=== PATIENT | female | born 1985 | race American Indian/Alaskan Native ===

== ENCOUNTER 2022-01-20 20:11 | Outpatient (CLI) | payer OTHER ==
--- NOTE | 2022-01-21 00:30 | Ultrasound Report ---
ULTRASOUND OBSTETRIC COMPLETE INDICATION / CLINICAL INFORMATION: BASSAM,EFW. Clinical Gestational Age (GA) in weeks, days: 37 weeks 4 days TECHNIQUE: Transabdominal. COMPARISON: None available. FINDINGS: Single live intrauterine in cephalic presentation with heart rate of 133 bpm. m easurements correspond to a gestational age of 35 weeks and 1 day. Estimated weight is 2534 g. Amniotic fluid index measures 5.8 cm, which is decreased. IMPRESSION: 1. Diminished amniotic fluid index measuring 5.87 m. 2. Single live uterine with ultrasound age of 35 weeks and 1 day. Estimated weight of 2534 g. 3. No other significant abnormality. Signer Name: David Burton MD Signed: 01/21/2022 12:26 AM Workstation Name: [id number]
[2022-01-21 01:09] LABS: Basophils # (Auto) 0.1 K/mm3 (0.0-0.1); Basophils % (Auto) 0.9 % (0.0-1.8); Eosinophils # (Auto) 0.3 K/mm3 (0.0-0.4); Eosinophils % (Auto) 2.6 % (0.0-4.3); Hematocrit 34.1 % (30.3-42.9); Lymphocytes # (Auto) 2.8 K/mm3 (1.2-5.4); Lymphocytes % (Auto) 23.4 % (13.4-35.0); Mean Corpuscular HGB Conc 32 % (30-34); Mean Corpuscular Volume 84 fl (79-97); Monocytes % (Auto) 8.7 % (0.0-7.3); Platelet Count 200 K/mm3 (140-440); Red Blood Count 4.08 M/mm3 (3.65-5.03); Red Cell Distribution Width 14.7 % (13.2-15.2)
[2022-01-21] MEDS ORDERED: fentaNYL 100 MCG/2 ML INJ IV ONE (01:45)
[2022-01-21] MEDS ORDERED: LACTATED RINGERS 1,000 ML IV SCH (02:00)
--- NOTE | 2022-01-21 08:48 | Ultrasound Report ---
. ULTRASOUND OBSTETRIC LIMITED INDICATION / CLINICAL INFORMATION: Borderline oligohydramnios (BASSAM= 5.8 cm yesterday). TECHNIQUE: Transabdominal ultrasound imaging. COMPARISON: Yesterday FINDINGS: HEART RATE (beats per minute): 133 AMNIOTIC FLUID INDEX (cm) = 9.3 as opposed to 5.8 on yesterday's exam PRESENTATION: Cephalic. ADDITIONAL FINDINGS: None. IMPRESSION: No significant abnormality. No oligohydramnios on today's exam. BASSAM measures 9.3 cm. Signer Name: Alex Nguyen Jr, MD Signed: 01/21/2022 8:43 AM Workstation Name: [id number]
--- NOTE | 2022-01-21 08:48 | Ultrasound Report ---
ULTRASOUND OB VELOCIMETRY UMBILICAL ARTERY HISTORY: Intrauterine growth restriction TECHNIQUE: Transabdominal ultrasound with color and spectral Doppler imaging COMPARISON: None FINDINGS: 3 segments of the umbilical cord were evaluated. heart rate measures 133 bpm. The spectral wave forms are normal and persistent. Average S/D ratio measures: 2.52 Average resistive index measures: 0.60 Signer Name: Alex Nguyen Jr, MD Signed: 01/21/2022 8:44 AM Workstation Name: [id number]
[2022-01-21 09:27] VITALS: BP 116/61
== END 2022-01-21 10:11 | disposition home or self-care (01) ==
LOC: TRG 20:11 → APU 20:13 → LD 01-21 07:42 → TRG 01-21 10:11
PROVIDERS: ATTEND Obstetrics & Gynecology Gynecology
DX: O62.9 Abnormality of forces of labor, unspecified (principal); O36.5930 Maternal care for other known or suspected poor fetal growth, third trimester, not applicable or unspecified; O26.893 Other specified pregnancy related conditions, third trimester; M54.9 Dorsalgia, unspecified; M79.606 Pain in leg, unspecified; O99.513 Diseases of the respiratory system complicating pregnancy, third trimester; J45.909 Unspecified asthma, uncomplicated; Z3A.37 37 weeks gestation of pregnancy; Z87.891 Personal history of nicotine dependence
CPT/HCPCS: 36415; 76815; 76816; 76820; 84112; 85025; 86592; 86850; 86900; 86901; 96361; 96374; J3010; J7120

== ENCOUNTER 2022-02-02 07:17 | Inpatient (IN) | payer OTHER ==
[2022-01-28 14:12] LABS: Mean Corpuscular HGB Conc 34 % (30-34); Mean Corpuscular Volume 81 fl (79-97); Platelet Count 216 K/mm3 (140-440); Red Blood Count 4.31 M/mm3 (3.65-5.03); Red Cell Distribution Width 14.9 % (13.2-15.2)
[2022-02-03] MEDS ORDERED: ACETAMINOPHEN 325 MG TAB PO PRN ×2 (17:56→23:04)
[2022-02-03] MEDS ORDERED: fentaNYL 100 MCG/2 ML INJ IV PRN (17:56)
[2022-02-03] MEDS ORDERED: BICITRA ORAL LIQD 30ML PO ONE ×2 (17:59→18:36)
[2022-02-03] MEDS ORDERED: FAMOTIDINE 20 MG/2 ML INJ IV ONE ×2 (17:59→18:36)
[2022-02-03] MEDS ORDERED: METOCLOPRAMIDE 10 MG/2 ML INJ IV ONE ×2 (17:59→18:36)
[2022-02-03] MEDS ORDERED: LACTATED RINGERS 1,000 ML IV SCH ×3 (18:00→18:45)
[2022-02-03] MEDS ORDERED: OXYTOCIN DRIP 30 UNITS/500 ML BAG IV SCH ×2 (18:00→23:45)
[2022-02-03] MEDS ORDERED: BUPIVACAINE/PF (0.5%) 5 MG/1 ML 30 ML VIAL INFILTRATI ONE (19:13)
[2022-02-03] MEDS ORDERED: PHENYLEPHRINE/NS 1,000 MCG/10 ML SYRINGE (OR USE) IV ONE (19:13)
[2022-02-03] MEDS ORDERED: ePHEDrine SULFATE 50 MG/1 ML INJ ONE (19:13)
[2022-02-03] MEDS ORDERED: ONDANSETRON 4 MG/2 ML INJ ONE (19:13)
[2022-02-03] MEDS ORDERED: SODIUM CHLORIDE 0.9% 100 ML ONE (19:13)
[2022-02-03 19:18] LABS: Basophils # (Auto) 0.1 K/mm3 (0.0-0.1); Basophils % (Auto) 0.7 % (0.0-1.8); Eosinophils # (Auto) 0.1 K/mm3 (0.0-0.4); Eosinophils % (Auto) 1.2 % (0.0-4.3); Hematocrit 36.9 % (30.3-42.9); Hemoglobin 12.3 gm/dl (10.1-14.3); Lymphocytes # (Auto) 2.2 K/mm3 (1.2-5.4); Lymphocytes % (Auto) 22.8 % (13.4-35.0); Mean Corpuscular HGB Conc 33 % (30-34); Mean Corpuscular Volume 82 fl (79-97); Monocytes # (Auto) 0.8 K/mm3 (0.0-0.8); Monocytes % (Auto) 8.6 % (0.0-7.3); Platelet Count 209 K/mm3 (140-440); Red Blood Count 4.48 M/mm3 (3.65-5.03); Red Cell Distribution Width 14.9 % (13.2-15.2)
--- NOTE | 2022-02-03 19:31 | History and Physical Report ---
History of Present Illness Date of examination: 02/03/22 Date of admission: 02/03/22 17:31 Chief complaint: History of section x2 presents to [facility] for repeat section. History of present illness: CC: History of section x2 HPI: 36 yo at 39.4 wga here for repeat cesearean section; history of Multiple sclerosus diagnosed in 2018; Asthma which is mild intermittent; advanced maternal age; history of section x 2 . Late care at [facility] and non compliant with provider recommendations for high risk management, Neurology consultation. Patient also found to be positive for marijuana use. 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 History: other (ASCUS HPV positive 2021) Family/Genetic History: none, anesthesia problems Social history: no significant social history, smoking (Marijuana postitive screen), full code - Obstetrical History Expected Date of Delivery: 02/06/22 Actual Gestation: 39 Week(s) 5 Day(s) : 8 Para: 2 Hx # Term Pregnancies: 2 Number of Pregnancies: 0 Spontaneous Abortions: 2 Induced : 3 Number of Living Children: 2 Medications and Allergies Allergies Allergy/AdvReac Type Severity Reaction Status Date / Time cat dander Allergy Itching Verified 01/26/22 17:34 dog dander Allergy Itching Verified 01/26/22 17:34 Fish Containing Products Allergy Itching Verified 01/26/22 17:34 peanut Allergy Itching Verified 01/26/22 17:34 Home Medications Medication Instructions Recorded Confirmed Last Taken Type Albuterol Sulfate [Proair 2 puff IH Q4H PRN 01/26/22 01/26/22 Unknown History Respiclick] Loratadine [Allergy Relief] 10 mg PO DAILY 01/26/22 01/26/22 Unknown History Pnv No.133/Ferrous Fum/Folic [Sv 1 tab PO DAILY 01/26/22 01/26/22 Unknown History Vitamins Tablet] Active Meds: Active Medications Acetaminophen (Acetaminophen 325 Mg Tab) 650 mg PO Q4H PRN PRN Reason: Pain, Mild (1-3) Fentanyl (Fentanyl 100 Mcg/2 Ml Inj) 100 mcg IV Q2H PRN PRN Reason: Pain,Severe (7-10) LABOR PAIN Lactated Ringer's (Lactated Ringers) 1,000 mls @ 125 mls/hr IV DIRECT RICHARD Lactated Ringer's (Lactated Ringers) 1,000 mls @ 2,250 mls/hr IV PREOP RICHARD Stop: 02/04/22 18:27 Oxytocin/Sodium Chloride (Pitocin/Ns 30 Unit/500ml) 30 units in 500 mls @ 0 mls/hr IV TITR RICHARD; Protocol Lactated Ringer's (Lactated Ringers) 1,000 mls @ 2,250 mls/hr IV PREOP RICHARD Stop: 02/04/22 19:12 Review of Systems All systems: negative (Denies) Constitutional: weight loss, fever, chills, sweats, fatigue, weakness, poor appetite Eyes: deferred Ears, nose, mouth and throat: deferred Cardiovascular: chest pain, lightheadedness (Denies) Respiratory: cough with sputum, shortness of breath Breasts: normal Gastrointestinal: abdominal pain, vomiting, diarrhea (Denies) Genitourinary: deferred, vaginal bleeding (Denies), vaginal discharge, genital sores Rectal Exam: deferred Musculoskeletal: neck stiffness, muscle weakness (Denies) Neurological: parathesias (Denies), numbness, ataxia (Denies), burning pain (denies) Endocrine: cold intolerance (Denies), heat intolerance (Denies), fatigue Hematologic/Lymphatic: easy bruising (Denies) Allergic/Immunologic: urticaria (Denies), wheezing (Denies), other (Peanuts latex, ,Fish products.) - Vital Signs Vital signs: Vital Signs Temp Pulse Resp BP Pulse Ox 98 F 75 20 128/78 100 01/28/22 14:00 01/28/22 14:00 01/28/22 14:00 01/28/22 14:00 01/28/22 14:00 Temp Pulse Resp BP Pulse Ox 98.2 F 66 16 143/76 98 02/03/22 19:13 02/03/22 19:21 02/03/22 19:14 02/03/22 19:14 02/03/22 19:21 Results Result Diagrams: 02/04/22 05:52 02/04/22 05:52 Abnormal lab results 02/03/22 Range/Units 18:40 Desha % (Auto) 8.6 H (0.0-7.3) % All other labs normal. Assessment and Plan - Patient Problems (1) Advanced maternal age during in third trimester Current Visit: Yes Status: Acute (2) Asthma affecting in third trimester Current Visit: Yes Status: Acute (3) High-risk , elderly multigravida in third trimester Current Visit: Yes Status: Acute (4) History of 2 sections Current Visit: Yes Status: Acute (5) Insufficient care in third trimester Current Visit: Yes Status: Acute (6) Multiple sclerosis affecting in third trimester Current Visit: Yes Status: Acute (7) Multiple sclerosis affecting Current Visit: No Status: Acute
[2022-02-03] MEDS ORDERED: ceFAZolin/STERILE WATER 2 GM/20 ML SYRINGE IV NR (20:00)
[2022-02-03 20:20] LABS: Basophils % (Auto) 0.5 % (0.0-1.8); Eosinophils # (Auto) 0.1 K/mm3 (0.0-0.4); Eosinophils % (Auto) 1.2 % (0.0-4.3); Hematocrit 35.9 % (30.3-42.9); Lymphocytes # (Auto) 2.1 K/mm3 (1.2-5.4); Lymphocytes % (Auto) 22.7 % (13.4-35.0); Mean Corpuscular HGB Conc 33 % (30-34); Mean Corpuscular Volume 81 fl (79-97); Monocytes # (Auto) 0.8 K/mm3 (0.0-0.8); Monocytes % (Auto) 8.6 % (0.0-7.3); Platelet Count 210 K/mm3 (140-440); Red Blood Count 4.41 M/mm3 (3.65-5.03); Red Cell Distribution Width 14.9 % (13.2-15.2)
[2022-02-03] MEDS ORDERED: GLYCOPYRROLATE 0.4 MG/2 ML INJ ONE (21:56)
[2022-02-03] MEDS ORDERED: HYDROcodone/ACETAMINOPHEN 5-325 MG TAB PO PRN (23:04)
[2022-02-03] MEDS ORDERED: ONDANSETRON 4 MG/2 ML INJ IV PRN (23:04)
[2022-02-03] MEDS ORDERED: LANOLIN/ZINC/DIMETHICONE (LANSINOH) 7 GM TP PRN (23:04)
[2022-02-03] MEDS ORDERED: MORPHINE 4 MG/1 ML INJ IV PRN (23:04)
[2022-02-03] MEDS ORDERED: NALOXONE 0.4 MG/1 ML INJ IV PRN (23:04)
[2022-02-03] MEDS ORDERED: SIMETHICONE 80 MG CHEW TAB PO PRN (23:04)
[2022-02-03] MEDS ORDERED: MAGNESIUM HYDROXIDE (MOM) ORAL LIQD UDC PO PRN (23:04)
[2022-02-04] MEDS ORDERED: D5W/LACTATED RINGERS 1,000 ML IV SCH
[2022-02-04] MEDS ORDERED: PROMETHAZINE 25 MG TAB PO PRN (00:04)
[2022-02-04] MEDS ORDERED: PROMETHAZINE 25 MG RECT SUPP PR PRN (00:04)
[2022-02-04] MEDS ORDERED: NALOXONE 0.4 MG/1 ML INJ IV PRN (00:04)
[2022-02-04] MEDS ORDERED: HYDROmorphone 1 MG/1 ML INJ IV PRN ×2 (00:04)
[2022-02-04] MEDS ORDERED: ONDANSETRON 4 MG/2 ML INJ IV PRN (00:04)
[2022-02-04] MEDS ORDERED: MORPHINE 4 MG/1 ML INJ IV PRN (00:04)
[2022-02-04] MEDS ORDERED: fentaNYL-BUPIV 2 MCG/ML-0.125% 200 MCG/100 ML BAG EPIDURAL SCH (01:00)
[2022-02-04] MEDS ORDERED: MAGNESIUM SULFATE 4 GM/100 ML BAG IV ONE (01:13)
[2022-02-04] MEDS ORDERED: LACTATED RINGERS 1,000 ML ONE (01:21)
--- NOTE | 2022-02-04 01:30 | Anesthesia Consultation ---
Anesthesia Consult and Med Hx Date of service: 02/03/22 - Airway Anesthetic Teeth Evaluation: Good ROM Head & Neck: Adequate Mental/Hyoid Distance: Adequate Mallampati Class: Class II Intubation Access Assessment: Probably Good - Pulmonary Exam CTA: Yes - Cardiac Exam Cardiac Exam: RRR - Pre-Operative Health Status ASA Pre-Surgery Classification: ASA2 Proposed Anesthetic Plan: Spinal Nerve Block: Eron Tap - Pulmonary Hx Smoking: Yes (Former) Hx Asthma: Yes Hx Respiratory Symptoms: No SOB: No COPD: No Home Oxygen Therapy: No Hx Pneumonia: No Hx Sleep Apnea: No - Cardiovascular System Hx Hypertension: No Hx Coronary Artery Disease: No Hx Heart Attack/AMI: No Hx Angina: No Hx Percutaneous Transluminal Coronary Angioplasty (PTCA): No Hx Cardia Arrhythmia: No Hx Pacemaker: No Hx Internal Defibrillator: No Hx Valvular Heart Disease: No Hx Heart Murmur: Yes Hx Peripheral Vascular Disease: No - Central Nervous System Hx Neuromuscular Disorder: No Hx Seizures: No CVA: No Hx Back Pain: No Hx Psychiatric Problems: No - Gastrointestinal Hx Ulcer: No Hx Gastroesophageal Reflux Disease: No - Endocrine Hx Renal Disease: No Hx End Stage Renal Disease: No Hx Cirrhosis: No Hx Liver Disease: No Hx Insulin Dependent Diabetes: No Hx Non-Insulin Dependent Diabetes: No Hx Thyroid Disease: No Hx Hypothyroidism: No Hx Hyperthyroidism: No - Hematic Hx Anemia: No Hx Sickle Cell Disease: No - Other Systems Hx Alcohol Use: No Hx Cancer: No Hx Obesity: No
--- NOTE | 2022-02-04 01:30 | Anesthesia Day of Surgery ---
Anesthesia Day of Surgery - Day of Surgery Patient Examined: Yes Patient H&P Reviewed: Yes Patient is NPO: Yes Beta Blockers: No Cardiac Clearance: No Pulmonary Clearance: No Onofre's Test: N/A
--- NOTE | 2022-02-04 01:31 | Progress Note ---
Spinal Anesthesia Block - Spinal Anesthesia Block Start Time: 21:42 Stop Time: 21:50 Performed by:: CHI URBIE Procedure: The patient was placed in a sitting position on the OR table and monitors applied. A timeout was performed immediately prior to the start of the procedure. The patient was Prepped and draped in a sterile fashion and the skin was localized with 3 mL 1% lidocaine at L[4]-L[5] interspace. An introducer was placed into the back between L4-L5 and a 25g spinal needle was advanced into the intrathecal space until clear, free flowing CSF was observed. 1.8cc of 0.75% hyperbaric bupivacaine + 0.5mcg Precedex was injected into the intrathecal space and the spinal needle was removed. The patient tolerated the procedure well and there were no immediate complications noted.
--- NOTE | 2022-02-04 01:32 | Progress Note ---
Regional Anesthesia Block - Regional Anesthesia Block Start Time: 23:45 Stop Time: 23:52 Performed By:: CHI URIBE Procedure: During the pre-op interview the patient agreed to and signed a consent for a TAP block for post surgical pain management. After her C/S was completed a time out was performed prior to the start of the procedure. The Trans Abdominal Plane was identified bilaterally via ultrasound. The skin was prepped bilaterally with chlorhexidine and a 22g stimuplex needle was advanced to the area between the internal oblique muscle and the trans abdominal plane. Marcaine 0.25% 30mlwas injected under ultrasound guidance on the left and right side. Negative aspiration every 5mL, There was no change in the patients heart rate or rhythm and the patient tolerated the procedure well. No apparent complications were observed.
[2022-02-04] MEDS ORDERED: MAGNESIUM SULFATE 40GM/1000ML 40 GM/1,000 ML BAG IV SCH (02:00)
[2022-02-04 06:09] LABS: Basophils # (Auto) 0.1 K/mm3 (0.0-0.1); Basophils % (Auto) 0.7 % (0.0-1.8); Eosinophils % (Auto) 0.4 % (0.0-4.3); Hematocrit 35.6 % (30.3-42.9); Hemoglobin 11.6 gm/dl (10.1-14.3); Lymphocytes # (Auto) 1.6 K/mm3 (1.2-5.4); Lymphocytes % (Auto) 14.3 % (13.4-35.0); Mean Corpuscular HGB Conc 33 % (30-34); Mean Corpuscular Volume 82 fl (79-97); Monocytes # (Auto) 1.3 K/mm3 (0.0-0.8); Monocytes % (Auto) 11.1 % (0.0-7.3); Platelet Count 194 K/mm3 (140-440); Red Blood Count 4.34 M/mm3 (3.65-5.03); Red Cell Distribution Width 14.9 % (13.2-15.2)
[2022-02-04 06:27] LABS: Alanine Aminotransferase 9 units/L (7-56); Uric Acid 5.1 mg/dL (3.5-7.6)
--- NOTE | 2022-02-04 07:16 | Operative Report ---
Operative Report Operative Report: Date of procedure: February 03, 2022 Preoperative diagnosis: 1 IUP at 39.4 wga 2. High risk third trimester 3. History of section x 2 4. Multiple sclerosis 5. Late care 6. Non compliance with care 7. Marijuana use during . 8. Advanced maternal age Postoperative diagnosis 1 IUP at 39.4 wga 2. High risk third trimester 3. History of section x 2 4. Multiple sclerosis 5. Late care 6. Non compliance with care 7. Marijuana use during . 8. Advanced maternal age 9. S/P Repeat section Procedure 1. Repeat section 2. Lysis of adhesions Anesthesia Spinal EBL: 650cc IVF: 1500cc LR Complications: None Findings Female infant APGARS Weight 5 lbs. 11 oz. Occiput posterior Clear amniotic fluid Placenta intact with 3 vessel cord Normal Uterus fallopian tubes and ovaries Operative note: After being fully consented and made aware of the risks and benefits of the procedure and answering all of her questions, patient was taken to the operating room where spinal anesthesia was placed. She was then placed in dorsal supine position with leftward tilt. A hardin catheter was placed. She was then prepped and draped in normal sterile fashion. After the appropriate time out was taken, a transverse incision was made with the scalpel and carried through to the underlying fascia with the scalpel then the bovie on cut cauterizing any bleeders that were seen in the appropriate manner. Once the fascia was observed it was nicked in the midline with the bovie on cut and the incision was then extended bilaterally with the pick ups with teeth and Chavez scissors. Two Biju clamps with placed on the fascia in the midline and the fascia was carefully dissected off of the overlying rectus muscles with excellent hemostatis, lysis of mild adhesions was performed. Attentioni was then turn to the inferior aspect of the incision which in a similar fashion was grasped with two Biju clamps in the midline and elevated. The pyrimidalis muscles were dissected off of the overlying facisa carefully with the curved Chavez scissors. The midline of the rectus muscles was located and entry was gained in the the peritoneum bluntly. The inferior aspect of the aperture was dissected in layers down to the bladder with the Luisa scissors and [place] forceps. Tension was applied to the rectus muscles and underlying peritoneum with good visualization of the uterus. There were mild adhesions between the bladder and the uterus which were meticulously dissected when creating the bladder flap. Once this was done the uterine incision was made in a curvilinear fashion. It was then entered into and exteneded bluntly. Clear amniotic fluid was noted. The fetus' head was grasped in the appropriate fashion and delivered through the incision in OP position. Once the head was delivered the mouth and nares were bulb suctioned and then again once completely delivered. The 3 vessel cord was doubly clamped and cut and the vigorous fetus was handed to the respiratory team the NICU team was later summoned due to respiratory issues and was later transferred to there for further evaluation. The uterus was cleared of all clots and debris and the edges of the incision were isolated with dolan clamps. The incision was then reapproximated using 0-vicryl suture on a CTX needle. It was then embrocated using 0-vicryl suture on a CTX needle. Surgicel powder was used for additional hemostatis. Once the incision was confirmed to be hemostatic the paracolic gutters were cleared of clot and debris with warm irrigation. The Jaspal retractor was then removed. The muscle was reapproximated along with the peritoneum using 2-[address] needle with excellent hemostasis The surgicel powder was used for minor bleeding of a few areas on the muscle .After excellent hemostasis was confirmed the fascial in cision was isolated with Hetal clamps and reapproximated using 0 vicryl suture in a running fashion with excellent hemostasis. The subcutaneous fatty layer was checked for bleeding after being irrigated and there were none. It was reapproximated using 2-0 vicryl suture in a running fashing with excellent hemostasis. The skin was then reapproximated using 3-0 monocryl suture on a Jacinto needle with excellent hemostatis. Dermabond suture was then used for further reinforcement of the skin incision. A pressure dressing was applied. Patient tolerated the procedure well and all counts were correct x4. She was returned to the recovery room in stable condition after a Tap Block was performed.
[2022-02-04] MEDS ORDERED: oxyCODONE /ACETAMINOPHEN 5-325MG TAB PO SCH (08:30)
[2022-02-04] MEDS ORDERED: KETOROLAC 30 MG/1 ML INJ IV SCH (09:00)
--- NOTE | 2022-02-04 10:24 | Cat Scan Report ---
CT ABDOMEN AND PELVIS WITHOUT AND WITH CONTRAST INDICATION / CLINICAL INFORMATION: post op pain right side. TECHNIQUE: Axial CT images were obtained through the abdomen and pelvis before and after 100 cc Omnip aque [address] scans at this location are performed using CT dose reduction for ALARA by means of automated exposure control. COMPARISON: None available. FINDINGS: LOWER CHEST: Bibasilar atelectasis. AORTA / ARTERIES: No significant abnormality. IVC / VEINS: No significant abnormality. LYMPH NODES: No significant adenopathy. COLON: No significant abnormality. APPENDIX: No significant abnormality. STOMACH / SMALL BOWEL: No significant abnormality. PERITONEUM: Expected free air. Expected free fluid. No fluid collection. LIVER: No significant abnormality. GALLBLADDER: No significant abnormality. BILE DUCTS: No significant abnormality. PANCREAS: No significant abnormality. SPLEEN: No significant abnormality. ADRENALS: No significant abnormality. RIGHT KIDNEY / URETER: No significant abnormality. LEFT KIDNEY / URETER: No significant abnormality. URINARY BLADDER: Borrero within the urinary bladder. REPRODUCTIVE ORGANS: There is a immediate post gravid uterus. Anterior lower uterine segment there is increased density. No additional areas of increased density are noted within the uterus or adjacent to the uterus. SKELETAL SYSTEM: No significant abnormality. ADDITIONAL FINDINGS: Scattered subcutaneous emphysema, likely postprocedural. IMPRESSION: 1. Immediate post gravid uterus with increased density along the anterior lower uterine segment. This likely postop procedural hemorrhage. No additional areas of high density fluid to suggest additional hemorrhage. Signer Name: Toni Carmona DO Signed: 02/04/2022 10:19 AM Workstation Name: [id number]
--- NOTE | 2022-02-04 17:54 | Progress Note ---
Assessment and Plan A: POD # 1 Pain on right side of abdomen P: CT with and W/O contrast done - WNL Responded well to Percocet for pain Subjective - Subjective Date of service: 02/04/22 Principal diagnosis: POD # 1 Patient reports: appetite normal : doing well Objective - Vital Signs Latest vital signs: Vital Signs Temp Pulse Resp BP BP Pulse Ox Pulse Ox 02/04/22 17:30 129/64 02/04/22 16:49 65 98 02/04/22 16:44 75 98 02/04/22 16:37 98.2 F 75 16 139/78 98 02/04/22 16:34 72 98 02/04/22 16:29 77 99 02/04/22 16:28 16 02/04/22 16:25 69 138/79 02/04/22 16:24 70 98 02/04/22 16:19 79 99 02/04/22 16:14 74 98 02/04/22 16:10 88 93 02/04/22 16:09 85 96 02/04/22 16:05 70 93 02/04/22 16:04 70 93 02/04/22 15:59 86 94 02/04/22 15:49 72 95 02/04/22 15:44 77 95 02/04/22 15:39 72 98 02/04/22 15:34 75 98 02/04/22 15:29 67 99 02/04/22 15:27 80 89 02/04/22 15:24 91 H 97 02/04/22 15:21 93 H 86 02/04/22 15:19 75 84 02/04/22 15:14 81 94 02/04/22 15:09 80 98 02/04/22 15:04 73 99 02/04/22 14:59 76 99 02/04/22 14:54 77 99 02/04/22 14:49 91 H 98 02/04/22 14:44 75 99 02/04/22 14:39 83 99 02/04/22 14:34 73 99 02/04/22 14:29 80 99 02/04/22 14:24 86 98 02/04/22 14:19 76 97 02/04/22 14:18 78 140/79 02/04/22 14:14 79 100 02/04/22 14:09 83 99 02/04/22 14:04 93 H 89 02/04/22 13:59 75 97 02/04/22 13:56 68 94 02/04/22 13:54 75 97 02/04/22 13:49 65 98 02/04/22 13:44 69 98 02/04/22 13:39 69 98 02/04/22 13:34 71 95 02/04/22 13:29 69 98 02/04/22 13:24 66 96 02/04/22 13:19 71 159/86 96 02/04/22 13:14 73 97 02/04/22 13:09 61 95 02/04/22 13:05 57 L 94 02/04/22 13:04 53 L 96 02/04/22 12:59 71 99 02/04/22 12:54 75 99 02/04/22 12:49 67 99 02/04/22 12:44 72 100 02/04/22 12:39 65 96 02/04/22 12:34 62 98 02/04/22 12:29 68 100 02/04/22 12:24 71 100 02/04/22 12:19 74 131/65 99 02/04/22 12:16 69 94 02/04/22 12:14 65 99 02/04/22 12:09 76 98 02/04/22 12:04 68 99 02/04/22 11:59 71 96 02/04/22 11:54 73 97 02/04/22 11:49 62 99 02/04/22 11:44 70 96 02/04/22 11:39 66 96 02/04/22 11:34 65 98 02/04/22 11:29 75 98 02/04/22 11:26 98.1 F 71 16 141/83 98 02/04/22 11:25 16 02/04/22 11:24 67 98 02/04/22 11:19 63 99 02/04/22 11:18 65 141/83 02/04/22 11:14 69 97 02/04/22 11:09 66 99 02/04/22 09:27 80 96 02/04/22 09:25 100 02/04/22 09:22 70 100 02/04/22 09:17 77 98 02/04/22 09:13 69 148/75 02/04/22 09:12 68 99 07/20/22 09:07 73 98 07 09:02 75 98 0720/22 08:57 74 99 22 08:52 75 99 22 08:47 69 99 22 08:43 76 131/76 0722 08:42 77 99 02/04/22 08:37 77 98 02/04/22 08:32 66 98 02/04/22 08:27 83 97 02/04/22 08:22 69 98 02/04/22 08:19 74 151/70 0722 08:17 74 98 02/04/22 08:12 78 99 07 08:07 70 100 02/04/22 08:02 71 100 02/04/22 07:57 82 98 02/04/22 07:52 75 98 02/04/22 07:47 78 98 02/04/22 07:43 75 135/82 02/04/22 07:42 76 98 02/04/22 07:37 75 98 02/04/22 07:32 69 98 02/04/22 07:27 75 98 07 07:22 76 98 02/04/22 07:17 70 98 07 07:12 66 147/81 99 02/04/22 07:07 74 99 02/04/22 07:02 77 98 02/04/22 06:57 70 98 22 06:52 73 97 02/04/22 06:47 72 98 0722 06:42 67 97 02/04/22 06:41 69 151/81 22 06:37 70 98 02/04/22 06:32 65 98 072022 06:28 67 160/85 0720/22 06:27 80 100 0720/22 06:22 72 99 0720/22 06:17 73 99 0720/22 06:12 78 98 22 06:07 61 99 02/04/22 06:02 73 99 0722 05:57 74 145/83 97 20/22 05:52 67 99 07/20/22 05:47 69 98 0720/22 05:42 72 97 072022 05:37 68 98 0722 05:32 71 98 07/20/22 05:28 80 131/60 07/20/22 05:27 82 98 07/2022 05:22 74 96 07/22 05:17 71 97 0722 05:12 71 96 02/04/22 05:07 70 96 07 05:02 70 97 02/04/22 04:57 70 97 02/04/22 04:56 68 137/62 0722 04:52 73 98 07 04:47 71 99 07 04:42 67 99 0722 04:37 73 98 02/04/22 04:32 73 98 07 04:27 67 99 07 04:26 69 141/79 02/04/22 04:22 63 99 07 04:17 65 99 02/04/22 04:12 65 98 02/04/22 04:07 63 99 02/04/22 04:02 69 99 07 03:57 67 99 02/04/22 03:56 69 128/68 07 03:52 70 98 02/04/22 03:47 71 98 07 03:42 63 99 02/04/22 03:37 65 98 02/04/22 03:32 79 98 02/04/22 03:27 79 98 07 03:22 70 99 02/04/22 03:17 75 99 02/04/22 03:15 99 02/04/22 02:40 64 15 117/61 98 0722 02:25 70 13 120/63 99 07/22 01:55 68 19 128/63 100 07/20/22 01:40 98.2 F 62 16 158/82 100 07/20/22 01:25 62 13 155/82 100 07/20/22 01:10 62 13 159/91 100 07/20/22 00:59 69 166/87 0720/22 00:55 70 14 166/87 100 07/20/22 00:40 76 20 171/96 99 0720/22 00:28 95 H 86 0720/22 00:25 97.8 F 78 18 151/91 99 072022 00:20 80 99 072022 00:15 81 100 07/20/22 00:10 79 17 156/75 100 02/04/22 00:05 74 16 141/49 100 02/04/22 00:00 97.5 F L 77 16 136/79 99 02/03/22 23:55 81 100 02/03/22 23:50 80 100 02/03/22 23:45 82 100 02/03/22 23:40 84 100 02/03/22 23:35 82 100 02/03/22 23:30 79 100 02/03/22 23:26 91 H 92 02/03/22 23:25 93 H 88 02/03/22 23:20 88 100 02/03/22 23:15 90 99 02/03/22 23:10 84 99 02/03/22 23:05 86 98 02/03/22 23:00 87 100 02/03/22 22:55 87 100 02/03/22 22:50 95 H 99 02/03/22 22:45 93 H 97 02/03/22 22:41 86 126/79 02/03/22 22:40 89 02/03/22 21:16 82 99 02/03/22 21:15 69 109/55 02/03/22 21:11 70 99 02/03/22 21:06 75 99 02/03/22 21:01 68 99 02/03/22 20:59 67 120/74 02/03/22 20:56 67 100 02/03/22 20:51 77 99 02/03/22 20:14 74 135/81 02/03/22 20:11 74 99 02/03/22 20:06 69 100 02/03/22 20:01 80 99 02/03/22 19:59 67 139/80 02/03/22 19:56 63 100 99 02/03/22 19:51 71 99 02/03/22 19:46 70 100 02/03/22 19:45 73 141/104 02/03/22 19:41 73 100 02/03/22 19:36 69 100 02/03/22 19:31 67 99 02/03/22 19:30 71 146/85 02/03/22 19:26 73 100 02/03/22 19:21 66 98 02/03/22 19:16 70 99 02/03/22 19:14 66 16 143/76 99 02/03/22 19:13 98.2 F 02/03/22 19:11 71 97 02/03/22 19:06 79 99 02/03/22 19:01 71 98 02/03/22 18:58 80 93 02/03/22 18:56 77 98 02/03/22 18:51 65 98 02/03/22 18:46 73 133/59 98 02/03/22 18:41 72 98 02/03/22 18:36 71 98 02/03/22 18:31 76 98 02/03/22 18:29 71 142/79 02/03/22 18:26 74 99 02/03/22 18:21 72 99 02/03/22 18:16 77 99 02/03/22 18:13 71 120/75 02/03/22 18:11 81 100 Intake and Output 02/04/22 02/04/22 02/04/22 06:59 14:59 22:59 Intake Total 1000 Output Total 600 2350 950 Balance 400 -2350 -950 Intake: IV 1000 Output: Urine 600 2350 950 Indwelling Catheter 2350 950 Uretheral (Borrero) 500 Other: Total, Output Amount 600 250 - Exam Breasts: Present: deferred Cardiovascular: Present: Regular rate Lungs: Present: Clear to auscultation Abdomen: Present: soft Vulva: both: normal Uterus: Present: fundal height below umbilicus Deep Tendon Reflex Grade: Normal +2 - Labs Labs: Abnormal lab results 02/03/22 02/03/22 02/04/22 Range/Units 18:40 18:56 05:52 WBC 11.2 H (4.5-11.0) K/mm3 MCH 27 L 27 L (28-32) pg Nye % (Auto) 8.6 H 8.6 H 11.1 H (0.0-7.3) % Nye # (Auto) 1.3 H (0.0-0.8) K/mm3 Seg Neutrophils % 73.5 H (40.0-70.0) % Seg Neutrophils # 8.3 H (1.8-7.7) K/mm3 Magnesium (1.7-2.3) mg/dL Lactate Dehydrogenase (91-180) units/L 02/04/22 02/04/22 02/04/22 Range/Units 05:52 05:52 13:35 WBC (4.5-11.0) K/mm3 MCH (28-32) pg Nye % (Auto) (0.0-7.3) % Nye # (Auto) (0.0-0.8) K/mm3 Seg Neutrophils % (40.0-70.0) % Seg Neutrophils # (1.8-7.7) K/mm3 Magnesium 3.90 H 4.40 H (1.7-2.3) mg/dL Lactate Dehydrogenase 260 H (91-180) units/L
[2022-02-04] MEDS ORDERED: CALC GLUCONATE 1GM/NS 100 ML 1 GM/100 ML BAG IV STA (21:06)
[2022-02-04 21:59] LABS: Blood Urea Nitrogen 3 mg/dL (7-17); Calcium 7.8 mg/dL (8.4-10.2); Hemolysis Index 9
[2022-02-04 22:04] LABS: BUN/Creatinine Ratio 5
[2022-02-05] MEDS: oxyCODONE /ACETAMINOPHEN 5-325MG TAB PO PRN ×4 (01:46→23:16)
[2022-02-05] MEDS: IBUPROFEN 600 MG TAB PO PRN ×3 (06:05→18:21)
--- NOTE | 2022-02-05 10:54 | Post Anesthesia Evaluation ---
- Post Anesthesia Evaluation Patient Participated: Yes Airway Patent: Yes Stable Respiratory Function: Yes Nausea/Vomiting: No Temp > 96.8F: Yes Pain Manageable: Yes Adequeate Hydration: Yes Anesthesia Complications: No Block Receding Appropriately: Yes Patient on Ventilator: No
--- NOTE | 2022-02-05 11:25 | Progress Note ---
Assessment and Plan A: POD #2 Multiple Sclerosis Asthma P: Follow Routine PostOp Orders Anticipate D/C home in AM Subjective - Subjective Date of service: 02/05/22 Principal diagnosis: POD # 1 Patient reports: appetite normal, voiding normally, pain well controlled, flatus, ambulating normally [place]: doing well, in NICU, bottle feeding (and ) Objective - Vital Signs Latest vital signs: Vital Signs Temp Pulse Resp BP BP Pulse Ox Pulse Ox 02/05/22 08:39 98 02/05/22 07:21 99.0 F 73 18 117/74 98 02/05/22 05:34 98.0 F 68 20 142/71 99 02/05/22 00:29 98.5 F 76 18 138/80 100 100 02/04/22 22:14 76 98 02/04/22 22:10 98.5 F 76 16 137/67 100 02/04/22 21:59 98.5 F 69 16 144/79 99 02/04/22 20:15 97 02/04/22 20:14 98.1 F 80 14 98 02/04/22 18:49 79 100 02/04/22 17:30 129/64 02/04/22 16:49 65 98 02/04/22 16:44 75 98 02/04/22 16:37 98.2 F 75 16 139/78 98 02/04/22 16:34 72 98 02/04/22 16:29 77 99 02/04/22 16:28 16 02/04/22 16:25 69 138/79 02/04/22 16:24 70 98 02/04/22 16:19 79 99 02/04/22 16:14 74 98 02/04/22 16:10 88 93 02/04/22 16:09 85 96 02/04/22 16:05 70 93 02/04/22 16:04 70 93 02/04/22 15:59 86 94 02/04/22 15:49 72 95 02/04/22 15:44 77 95 02/04/22 15:39 72 98 02/04/22 15:34 75 98 02/04/22 15:29 67 99 02/04/22 15:27 80 89 02/04/22 15:24 91 H 97 02/04/22 15:21 93 H 86 02/04/22 15:19 75 84 02/04/22 15:14 81 94 02/04/22 15:09 80 98 02/04/22 15:04 73 99 02/04/22 14:59 76 99 02/04/22 14:54 77 99 02/04/22 14:49 91 H 98 02/04/22 14:44 75 99 02/04/22 14:39 83 99 02/04/22 14:34 73 99 02/04/22 14:29 80 99 02/04/22 14:24 86 98 02/04/22 14:19 76 97 02/04/22 14:18 78 140/79 02/04/22 14:14 79 100 02/04/22 14:09 83 99 02/04/22 14:04 93 H 89 02/04/22 13:59 75 97 02/04/22 13:56 68 94 02/04/22 13:54 75 97 02/04/22 13:49 65 98 02/04/22 13:44 69 98 02/04/22 13:39 69 98 02/04/22 13:34 71 95 02/04/22 13:29 69 98 02/04/22 13:24 66 96 02/04/22 13:19 71 159/86 96 02/04/22 13:14 73 97 02/04/22 13:09 61 95 02/04/22 13:05 57 L 94 02/04/22 13:04 53 L 96 02/04/22 12:59 71 99 02/04/22 12:54 75 99 02/04/22 12:49 67 99 02/04/22 12:44 72 100 02/04/22 12:39 65 96 02/04/22 12:34 62 98 02/04/22 12:29 68 100 02/04/22 12:24 71 100 02/04/22 12:19 74 131/65 99 02/04/22 12:16 69 94 02/04/22 12:14 65 99 02/04/22 12:09 76 98 02/04/22 12:04 68 99 02/04/22 11:59 71 96 02/04/22 11:54 73 97 02/04/22 11:49 62 99 02/04/22 11:44 70 96 02/04/22 11:39 66 96 02/04/22 11:34 65 98 02/04/22 11:29 75 98 02/04/22 11:26 98.1 F 71 16 141/83 98 02/04/22 11:25 16 02/04/22 11:24 67 98 Intake and Output 02/04/22 02/05/22 02/05/22 22:59 06:59 14:59 Output Total 1900 500 Balance -1900 -500 Output: Urine 1900 500 Indwelling Catheter 1900 Void 500 Other: Total, Output Amount 150 300 # Voids Void 1 - Exam Breasts: Present: normal Cardiovascular: Present: Regular rate Lungs: Present: Clear to auscultation, Normal air movement Abdomen: Present: normal appearance, soft, normal bowel sounds Uterus: Present: normal, firm, fundal height above umbilicus Extremities: Present: normal Incision: Present: normal, dry, intact - Labs Labs: Abnormal lab results 02/04/22 02/04/22 02/04/22 Range/Units 13:35 18:41 21:18 Sodium 133 L (137-145) mmol/L Chloride 94.9 L (98-107) mmol/L BUN 3 L (7-17) mg/dL Calcium 7.8 L (8.4-10.2) mg/dL Magnesium 4.40 H 16.50 H 5.30 H (1.7-2.3) mg/dL
[2022-02-06 01:39] VITALS: BP 121/79
[2022-02-06] MEDS: IBUPROFEN 600 MG TAB PO PRN (02:58)
[2022-02-06] MEDS: oxyCODONE /ACETAMINOPHEN 5-325MG TAB PO PRN (07:23)
--- NOTE | 2022-02-06 08:51 | Discharge Summary ---
Providers - Providers Date of Admission: 02/03/22 17:31 Date of discharge: 02/06/22 Attending physician: CARLOS ALBERTO DELGADO Primary care physician: CARLOS ALBERTO DELGADO Hospitalization Reason for admission: section Delivery: Procedure: repeat low transverse Incision: intact complications: none Discharge diagnosis: IUP at term delivered baby: female Condition at discharge: Good Disposition: 01 HOME / SELF CARE / HOMELESS Plan - Provider Discharge Summary Activity: routine, no sex for 6 weeks, no strenuous exercise Diet: routine Instructions: routine Additional instructions: [] Smoking cessation referral if applicable(refer to patient education folder for contact #) [] Refer to [facility]'s [facility] Booklet Call your doctor immediately for: * Fever > 100.5 * Heavy vaginal bleeding ( >1 pad per hour) * Severe persistent headache * Shortness of breath * Reddened, hot, painful area to leg or breast * Drainage or odor from incision. * Keep incision clean and dry at all times and follow doctor's instructions regarding bathing/showering - Follow up plan Follow up: CARLOS ALBERTO DELGADO MD [Primary Care Provider] - 14 Days
== END 2022-02-06 12:23 | disposition home or self-care (01) | DRG 765 ==
LOC: APU 02-03 17:31 → LD 02-04 03:11 → OB 02-05 00:42
PROVIDERS: ADMIT Obstetrics & Gynecology; ATTEND Obstetrics & Gynecology
PROC: 0UN90ZZ Release Uterus, Open Approach (ICD-10-PCS; principal; 2022-02-03)
PROC: 10D00Z1 Extraction of Products of Conception, Low, Open Approach (ICD-10-PCS; 2022-02-03)
DX: O34.211 Maternal care for low transverse scar from previous cesarean delivery (principal); O99.354 Diseases of the nervous system complicating childbirth; Z37.0 Single live birth; Z3A.39 39 weeks gestation of pregnancy; Z20.822 Contact with and (suspected) exposure to COVID-19; O99.52 Diseases of the respiratory system complicating childbirth; G35 Multiple sclerosis; J45.909 Unspecified asthma, uncomplicated
CPT/HCPCS: 36415; 74178; 80048; 82565; 83615; 83735; 84450; 84460; 84550; 85025; 85027; 86592; 86850; 86900; 86901; 88307; G0378; J1815; J3490; J7060; J7121; J0610; J1170; J1885; J2270; J2370; J2405; J2765; J3475; J7120; Q9967; U0003

== ENCOUNTER 2022-02-26 15:59 | Emergency (ER) | payer OTHER ==
[2022-02-26 17:09] VITALS: BP 146/94
--- NOTE | 2022-02-26 21:17 | Emergency Department Report ---
ED General Adult HPI - General Chief complaint: Pain General Stated complaint: COVID EXPOSURE Time Seen by Provider: 02/26/22 21:08 Source: patient Mode of arrival: Ambulatory Limitations: No Limitations - History of Present Illness Initial comments: Patient 36-year-old female who presents for COVID exposure. States family member positive COVID at home. Patient has history of asthma states cough productive yellow no fevers no chills diarrhea or body aches mild diarrhea. No notable fever. No fever noted in triage today. Patient is tolerating p.o. hydration. Advises cough is improved with albuterol inhaler use as needed as prescribed for her asthma. Patient rates symptoms at 10/26. - Related Data Home Medications Medication Instructions Recorded Confirmed Last Taken Albuterol Sulfate [Proair 2 puff IH Q4H PRN 01/26/22 01/26/22 Unknown Respiclick] Loratadine [Allergy Relief] 10 mg PO DAILY 01/26/22 01/26/22 Unknown Pnv No.133/Ferrous Fum/Folic [Sv 1 tab PO DAILY 01/26/22 01/26/22 Unknown Vitamins Tablet] Previous Rx's Medication Instructions Recorded Last Taken Type Acetaminophen/Codeine [Tylenol 1 tab PO Q4HR PRN #24 tablet 02/06/22 Unknown Rx /Codeine # 3 tab] Ibuprofen [Motrin 800 MG tab] 800 mg PO Q8HR #30 tablet 02/06/22 Unknown Rx Albuterol Mdi (or & Nicu Only) 2 puff IH QID PRN #8.5 gram 02/26/22 Unknown Rx [ProAir HFA Inhaler] Ibuprofen [Motrin 800 MG tab] 800 mg PO Q8HR PRN #30 tablet 02/26/22 Unknown Rx dexAMETHasone [Decadron] 4 mg PO BID 3 Days #6 tablet 02/26/22 Unknown Rx Allergies Allergy/AdvReac Type Severity Reaction Status Date / Time cat dander Allergy Itching Verified 02/26/22 17:10 dog dander Allergy Itching Verified 02/26/22 17:10 Fish Containing Products Allergy Itching Verified 02/26/22 17:10 peanut Allergy Itching Verified 02/26/22 17:10 ED Review of Systems ROS: Stated complaint: COVID EXPOSURE Other details as noted in HPI Constitutional: malaise. denies: chills, fever Eyes: denies: eye pain, eye discharge, vision change ENT: congestion. denies: ear pain, throat pain Respiratory: cough. denies: shortness of breath, wheezing Cardiovascular: denies: chest pain, palpitations Endocrine: no symptoms reported Gastrointestinal: nausea, diarrhea. denies: abdominal pain, vomiting, constipation, melena, hematochezia Genitourinary: denies: urgency, dysuria, discharge Musculoskeletal: denies: back pain, joint swelling, arthralgia Skin: denies: rash, lesions Neurological: as per HPI Psychiatric: denies: anxiety, depression Hematological/Lymphatic: denies: easy bleeding, easy bruising ED Past Medical Hx - Past Medical History Hx Hypertension: No Hx Heart Attack/AMI: No Hx Congestive Heart Failure: No Hx Diabetes: No Hx Deep Vein Thrombosis: No Hx GERD: Yes Hx Liver Disease: No Hx Renal Disease: No Hx Sickle Cell Disease: No Hx Headaches / Migraines: Yes (Migraines) Hx Seizures: No Hx Asthma: Yes Hx COPD: No Hx HIV: No - Surgical History Hx Pacemaker: No Hx Internal Defibrillator: No - Social History Smoking Status: Never Smoker - Medications Home Medications: Home Medications Medication Instructions Recorded Confirmed Last Taken Type Albuterol Sulfate [Proair 2 puff IH Q4H PRN 01/26/22 01/26/22 Unknown History Respiclick] Loratadine [Allergy Relief] 10 mg PO DAILY 01/26/22 01/26/22 Unknown History Pnv No.133/Ferrous Fum/Folic [Sv 1 tab PO DAILY 01/26/22 01/26/22 Unknown History Vitamins Tablet] Acetaminophen/Codeine [Tylenol 1 tab PO Q4HR PRN #24 tablet 02/06/22 Unknown Rx /Codeine # 3 tab] Ibuprofen [Motrin 800 MG tab] 800 mg PO Q8HR #30 tablet 02/06/22 Unknown Rx Albuterol Mdi (or & Nicu Only) 2 puff IH QID PRN #8.5 gram 02/26/22 Unknown Rx [ProAir HFA Inhaler] Ibuprofen [Motrin 800 MG tab] 800 mg PO Q8HR PRN #30 tablet 02/26/22 Unknown Rx dexAMETHasone [Decadron] 4 mg PO BID 3 Days #6 tablet 02/26/22 Unknown Rx ED Physical Exam - General Limitations: No Limitations General appearance: alert, in no apparent distress - Head Head exam: Present: normocephalic, normal inspection - Eye Eye exam: Present: EOMI Pupils: Present: normal accommodation - ENT ENT exam: Present: normal orophraynx, mucous membranes moist, TM's normal bilaterally - Neck Neck exam: Present: normal inspection, full ROM. Absent: tenderness, lymphadenopathy - Respiratory Respiratory exam: Present: normal lung sounds bilaterally. Absent: respiratory distress, wheezes, stridor, chest wall tenderness, prolonged expiratory - Cardiovascular Cardiovascular Exam: Present: regular rate, normal rhythm, normal heart sounds. Absent: systolic murmur, diastolic murmur, rubs, gallop - GI/Abdominal GI/Abdominal exam: Present: soft, normal bowel sounds. Absent: distended, tend erness - Rectal Rectal exam: Present: deferred - Extremities Exam Extremities exam: Present: normal inspection, full ROM, normal capillary refill - Back Exam Back exam: Present: normal inspection, full ROM. Absent: CVA tenderness (R), CVA tenderness (L) - Neurological Exam Neurological exam: Present: alert, oriented X3, CN II-XII intact, normal gait - Expanded Neurological Exam Expanded Patient oriented to: Present: person, place, time Speech: Present: fluid speech Motor strength exam: RUE: 5, LUE: 5, RLE: 5, LLE: 5 Best Eye Response ([place]): (4) open spontaneously Best Motor Response ([place]): (6) obeys commands Best Verbal Response ([place]): (5) oriented [place] Total: 15 - Psychiatric Psychiatric exam: Present: normal affect, normal mood - Skin Skin exam: Present: warm, dry, intact, normal color. Absent: rash ED Course Vital Signs 02/26/22 17:08 Temperature 98.8 F Pulse Rate 76 Respiratory 18 Rate Blood Pressure 146/94 [Left] O2 Sat by Pulse 99 Oximetry ED Medical Decision Making - Medical Decision Making Patient is currently alert oriented x3 patient appears nontoxic respirations are even and nonlabored there is no wheezing no abdominal pain no nausea vomiting at this time. Patient is tolerating p.o. hydration. This is a COVID exposure plan continue albuterol inhaler as needed as needed, Decadron Dosepak NSAIDs as needed for bodyache, continue to hydrate. Follow-up with primary care doctor in 2 to 3 days. Return to emergency department symptoms worsen Critical care attestation.: If time is entered above; I have spent that time in minutes in the direct care of this critically ill patient, excluding procedure time. ED Disposition Clinical Impression: Exposure to COVID-19 virus Disposition: HOME / SELF CARE / HOMELESS Is pt being admited?: No Does the pt Need Aspirin: No Condition: Stable Instructions: Viral Respiratory Infection, [id number] Additional Instructions: Take medications as prescribed, continue to hydrate as directed. Follow-up with your doctor in 2 to 3 days, follow-up with health department for COVID screening,. Return to emergency department should symptoms worsen. Prescriptions: dexAMETHasone [Decadron] 4 mg PO BID 3 Days #6 tablet Ibuprofen [Motrin 800 MG tab] 800 mg PO Q8HR PRN #30 tablet PRN Reason: pain fever Albuterol Mdi (or & Nicu Only) [ProAir HFA Inhaler] 2 puff IH QID PRN #8.5 gram PRN Reason: Shortness Of Breath Referrals: [facility] [Outside] - 3-5 Days Forms: Work/School Release Form(ED) Time of Disposition: 21:26
== END 2022-02-26 22:10 | disposition home or self-care (01) ==
LOC: ED 15:59
DX: R05.9 Cough, unspecified (principal); Z20.822 Contact with and (suspected) exposure to COVID-19; K21.9 Gastro-esophageal reflux disease without esophagitis; G43.909 Migraine, unspecified, not intractable, without status migrainosus; J45.909 Unspecified asthma, uncomplicated; Z79.899 Other long term (current) drug therapy; Z91.013 Allergy to seafood; Z91.048 Other nonmedicinal substance allergy status
CPT/HCPCS: 99282